=== PATIENT | female | born 1995 | race Caucasian/White ===

== ENCOUNTER 2016-11-22 13:16 | Emergency (ER) | payer BC, OTHER ==
[~2016-11-22] VITALS: Ht 175.3 cm; Wt 64.4 kg
[2016-11-22 16:30] VITALS: BP 127/84
== END 2016-11-22 16:40 | disposition home or self-care (01) ==
LOC: EDBD 13:16 → ER 13:23
DX: S30.0XXA Contusion of lower back and pelvis, initial encounter (principal); S70.02XA Contusion of left hip, initial encounter; M62.830 Muscle spasm of back; V49.9XXA Car occupant (driver) (passenger) injured in unspecified traffic accident, initial encounter; Y93.89 Activity, other specified; Y99.8 Other external cause status; Y92.89 Other specified places as the place of occurrence of the external cause
CPT/HCPCS: 72040; 72100; 73502